=== PATIENT | female | born 1990 | race Caucasian/White ===

== ENCOUNTER 2024-02-10 08:47 | Emergency (ER) | payer OTHER, SELFPAY ==
[2024-02-10 08:58] VITALS: BP 120/80; PULSE 78; RESP 20; TEMP 36.9; O2SAT 100
--- NOTE | 2024-02-10 09:24 | ED_ITS ---
HPI - Wound/Laceration General Chief Complaint: Extremity Injury, Upper Stated Complaint: cut thrumb on right hand Time Seen by Provider: 02/10/24 09:10 Source: patient, family, RN notes reviewed and old records reviewed Mode of arrival: ambulatory Limitations: no limitations History of Present Illness HPI narrative: 33 year old female presents to [facility] care accompanied by father with complaints of cutting the raygoza aspect of her right thumb on food process blade within the past 30 minutes prior to arrival with some active bleeding noted. Patient reports that she has has washed with laceration with soap and water and placed bandage to site. Patient has full mobility of her right thumb with no tingling or numbness voiced. She reports that her tetans is not up to date. Onset (ago): minute(s) (30 minutes prior to arrival) Location: other (right raygoza aspect of thumb) Place: home Patient tetanus UTD: No Treatments prior to arrival: bandage and other (washed with soap and water) Related Data Home Medications ?Medication ?Instructions ?Recorded ?Confirmed ?Last Taken ?Type etonogestrel 68 mg subdermal 1 implant subdermal ONCE 12/04/21 Unknown History implant (Nexplanon) Allergies Allergy/AdvReac Type Severity Reaction Status Date / Time amoxicillin Allergy Intermediate hives Verified 12/04/21 14:11 Iodinated Contrast Media Allergy Unknown Unknown Verified 02/10/24 09:03 Review of Systems Review of Systems: CONSTITUTIONAL: Denies fever, chills, or sweats. CARDIOVASCULAR: Denies chest pain, palpitations, or edema. RESPIRATORY: Denies cough or dyspnea. SKIN: Reports laceration to the distal raygoza aspect of her right thumb MUSCULOSKELETAL: Denies musculoskeletal pain NEUROLOGIC: Denies numbness, or weakness. All systems reviewed & are unremarkable except as noted in HPI and below [facility] Past Medical History Medical History (Updated 02/12/24 @ 09:51 by Pippa Duarte NP) Ovarian cyst Anxiety Encounter for screening examination for sexually transmitted disease Insertion of Nexplanon (~06/2019) PTSD (post-traumatic stress disorder) Family History Family History Grandparent Diabetes mellitus Breast cancer paternal grandmother/ maternal aunt Social History Social History (Updated 02/12/24 @ 09:42 by Pippa Duarte NP) Smoking status: Current some day smoker Tobacco type: cigarettes and e-cigarettes/vaping Alcohol intake: never Substance use: current Substance use type: marijuana Other substance usage details: ocassional for anxiety Living arrangements: other Additional living arrangements comments: single Occupation/Education: occupation 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 There is no relevant family history pertinent to the presenting complaint Exam Narrative: GENERAL: Well-appearing, well-nourished, and in no acute distress. HEAD: Normocephalic, atraumatic. NECK: Supple. CHEST: Clear to auscultation. No respiratory distress.SAO2 100% on room air HEART: Regular rate and rhythm. No murmur heard. Normal peripheral pulses. EXTREMITIES: Normal range of motion. No edema. SKIN: Warm, dry, no rash. Reports 2 cm laceration to the distal raygoza aspect of her right thumb with present bleeding under control with pressure, full mobility of right thumb, stong right radial pulse present see procedure note NEURO: No focal deficits. Alert and oriented x3. Course Course Level of Care: Express Care Visit Vital Signs Vital signs: Vital Signs Temperature 36.9 C 02/10/24 08:58 Pulse Rate 78 02/10/24 08:58 Respiratory Rate 20 02/10/24 08:58 Blood Pressure 120/80 02/10/24 08:58 Pulse Oximetry 100 02/10/24 08:58 Oxygen Delivery Room Air 02/10/24 08:58 Temperature 36.9 C 02/10/24 08:58 Pulse Rate 78 02/10/24 08:58 Respiratory Rate 20 02/10/24 08:58 Blood Pressure 120/80 02/10/24 08:58 Pulse Oximetry 100 02/10/24 08:58 Oxygen Delivery Room Air 02/10/24 08:58 Procedures Laceration thumb: Date: 02/10/24 Time: 09:40 Site: hand (distal raygoza thumb) Side (If applicable): right Size (cm): 2 Description: linear Depth: simple, single layer Local Anesthetic: lidocaine 1% Amount of anesthesia used (mL): 3 Pre-repair: wound explored, irrigated extensively and other (cleansed with wound care cleanser) ====== Skin Level ====== Skin layer closed with: nylon Size (cm): 4-0 Number of sutures: 4 Technique: simple, interrupted ====== Subcutaneous Layer ====== ====== Muscle Layer ====== ====== Tendon Layer ====== Dressing: laceration cleansed and irrigated localized with Lidocaine 1% 3 ml and sutured with Ethilon 4.0 with 4 interrupted sutures applied, tolerated well triple antibiotic ointment applied and band-aide dressing applied. Wound care instructions reviewed with patient and family member with understanding voiced. MDM - Wound/Laceration MDM Narrative Medical decision making narrative: Wound explored for foreign body and copious irrigation provided with no evidence of FB. Discussed the potential of retained foreign body with the patient and signs/symptoms that should prompt the patient to immediately go to the ED for reevaluation. The wound was explored and no foreign bodies were found. There was no evidence of tendon or nerve lacerations. The wound was closed per procedure note. A sterile dressing was then applied and anticipatory guidance was provided. Tetanus prophylaxis [(was/was not)] given Differential Diagnosis Differential diagnosis: Likely laceration, abrasion, avulsion of skin and other (laceration to distal raygoza aspect of right thumb) Medical Records Attestation: I reviewed the patient's medical records. Critical Care Time Critical Care Time Critical Care Time: No Discharge Plan Discharge Clinical Impression: Laceration of right thumb Qualifiers: Encounter type: initial encounter Damage to nail status: without damage Foreign body presence: without foreign body Qualified Code(s): S61.011A - Laceration without foreign body of right thumb without damage to nail, initial encounter Patient Disposition: Home, Self-Care Condition: Stable Instructions: Antibiotic Form, Laceration (ED) Additional Instructions: Keep the area clean and dry No continuous water contact like dishes or swimming You may bathe and wash you hair caution with hair products or lotions Bacitracin ointment to wound once daily dressing of choice watch for infection--redness, swelling, drainage follow up with PCP for suture/staple in removal * 10 days recheck with PCP if further concerns or problems Antibiotic as prescribed for 7 days If your symptoms persist, change or worsen significantly before you can contact your personal physician then please, without delay, go to the emergency department for further evaluation. Follow-up with PCP in 7-10 days or sooner if needed Patient Language: Maltese Prescriptions: New cephalexin 500 mg capsule 500 mg PO Q12H Qty: 14 0RF No Action Nexplanon 68 mg implant 1 implant subdermal ONCE Rx Instructions: as a single dose Follow-up/Referrals: PHYSICIAN,PHOTOGRAPHER STILL [Primary Care Provider] - Time of Disposition: 10:15 Quality Felix Coma Scale Eyes: Open Verbal: Oriented and Alert Motor: Follows Commands Felix Coma Total Score: 15
[2024-02-10] MEDS: TETANUS,DIPHTHERIA,AC PERTUSSIS ADULT (0.5 ML) BOOSTRIX IM (09:35)
== END 2024-02-10 10:19 | disposition home or self-care (01) ==
PROVIDERS: Emergency Provider Registered Nurse
DX: S61.011A Laceration without foreign body of right thumb without damage to nail, initial encounter (principal); W29.0XXA Contact with powered kitchen appliance, initial encounter; Z23 Encounter for immunization; F17.210 Nicotine dependence, cigarettes, uncomplicated; F17.290 Nicotine dependence, other tobacco product, uncomplicated; F12.90 Cannabis use, unspecified, uncomplicated
CPT/HCPCS: 12001; 90471; 90715; 99213; G0463

== ENCOUNTER 2024-03-06 10:26 | Emergency (ER) | payer OTHER, SELFPAY ==
[2024-03-06 10:30] VITALS: BP 132/75; PULSE 68; RESP 20; TEMP 36.9; O2SAT 100
--- NOTE | 2024-03-06 10:30 | ED.WOUNDLAC ---
HPI - Wound/Laceration General Chief Complaint: Skin/Abscess/Foreign Body Stated Complaint: remove stitches Time Seen by Provider: 03/06/24 10:36 Source: patient and RN notes reviewed Mode of arrival: ambulatory Limitations: no limitations History of Present Illness HPI narrative: 33 year old female presents with concern for suture removal. She reports she had 4 stitches placed in the 1st digit of her right hand almost 1 month ago. She has been keeping it covered with a bandage and using bacitracin. She denies any concerns, drainage from the wound Related Data Home Medications ?Medication ?Instructions ?Recorded ?Confirmed ?Last Taken ?Type etonogestrel 68 mg subdermal 1 implant subdermal ONCE 12/04/21 Unknown History implant (Nexplanon) Allergies Allergy/AdvReac Type Severity Reaction Status Date / Time amoxicillin Allergy Intermediate hives Verified 03/06/24 10:37 Iodinated Contrast Media Allergy Unknown Unknown Verified 03/06/24 10:37 Review of Systems Review of Systems: CONSTITUTIONAL: Denies malaise, chills, sweats, or fever. SKIN: Reports healed laceration with intact sutures to the 1st digit of the right hand MUSCULOSKELETAL: Denies muscle skeletal pain NEUROLOGIC: Denies numbness, weakness All systems reviewed & are unremarkable except as noted in HPI and below [facility] Past Medical History Medical History (Updated 03/06/24 @ 10:45 by Felicitas Ricardo NP) Ovarian cyst Anxiety Encounter for screening examination for sexually transmitted disease Insertion of Nexplanon (~06/2019) PTSD (post-traumatic stress disorder) Family History Family History Grandparent Diabetes mellitus Breast cancer paternal grandmother/ maternal aunt Social History Social History (Updated 02/12/24 @ 09:42 by Pippa Duarte NP) Smoking status: Current some day smoker Tobacco type: cigarettes and e-cigarettes/vaping Alcohol intake: never Substance use: current Substance use type: marijuana Other substance usage details: ocassional for anxiety Living arrangements: other Additional living arrangements comments: single Occupation/Education: occupation 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 There is no relevant family history pertinent to the presenting complaint Exam Narrative: GENERAL: Well-appearing, well-nourished, and in no acute distress. HEAD: Normocephalic, atraumatic. EYES: PERRLA, conjunctivae clear, and EOMI. ENT: Mucous membranes moist. NECK: Supple. No lymphadenopathy CHEST: Clear to auscultation. No respiratory distress. HEART: Regular rate and rhythm. SKIN: Warm, dry. For sutures noted in skin of the 1st digit of the right hand, skin slightly macerated, skin appears to be overly moist. Wound edges not fully closed,likely related to macerated skin. No erythema, edema, induration, tenderness noted around the wound NEURO: Alert and oriented x3. PSYCH: Normal mood and affect Course Course Emergency Course: Patient is aware of diagnosis, understands and agrees to treatment plan. Anticipatory guidance given. Patient agrees to follow-up as directed and is aware of reasons to seek care at the emergency department. Portions of this record may have been created with voice recognition software Level of Care: Express Care Visit Vital Signs Vital signs: Reviewed. MDM - Wound/Laceration MDM Narrative Medical decision making narrative: Verbal consent was obtained. Wound well approximated, no erythema, induration, or discharge noted. 4 completely removed in a sterile fashion, 3 of the sutures were barely attached to the skin and pulled out of macerated skin without needing cut. Patient tolerated procedure well, no complications. Patient advised to look for and return for any signs of infection such as redness, swelling, discharge, or worsening pain. Anticipatory guidance given Differential Diagnosis Differential diagnosis: Likely laceration, abrasion and avulsion of skin Critical Care Time Critical Care Time Critical Care Time: No Discharge Plan Discharge Clinical Impression: Encounter for removal of sutures Patient Disposition: Home, Self-Care Condition: Stable Instructions: Stitches Removal (ED) Additional Instructions: AFTER the stitches are removed: Clean your wound as directed. Carefully wash your wound with soap and water. Pat the area dry with a clean towel. Protect your wound. Your wound can swell, bleed, or split open if it is stretched or bumped. Leave open air when possible. You can cover the wound with a bandage would it is at risk for getting 30 How to minimize a scar: After sutures are removed, keep your scar out of the sun. Use sunblock if your wound is exposed to the sun. You may use OTC silicone pad and/or scar massage with ointment (for 10-15 min a day) after one month. Talk to your doctor if you think you are developing a keloid. Patient Language: [place]se Prescriptions: No Action cephalexin 500 mg capsule 500 mg PO Q12H Qty: 14 0RF Nexplanon 68 mg implant 1 implant subdermal ONCE Rx Instructions: as a single dose Follow-up/Referrals: PHYSICIAN,QUALITY CONTROL TECH [Primary Care Provider] - Time of Disposition: 10:45
== END 2024-03-06 10:47 | disposition home or self-care (01) ==
PROVIDERS: Emergency Provider Nurse Practitioner
DX: S61.011D Laceration without foreign body of right thumb without damage to nail, subsequent encounter (principal); X58.XXXD Exposure to other specified factors, subsequent encounter; F17.210 Nicotine dependence, cigarettes, uncomplicated; F17.290 Nicotine dependence, other tobacco product, uncomplicated; F12.90 Cannabis use, unspecified, uncomplicated
CPT/HCPCS: 99211; G0463